=== PATIENT | male | born 1935 | race Caucasian/White ===

== ENCOUNTER → 2017-11-01 | Outpatient (CLI) | payer OTHER | END | disposition home or self-care (01) | LOC: US 14:04 | DX: I65.23 Occlusion and stenosis of bilateral carotid arteries (principal); I10 Essential (primary) hypertension; E78.5 Hyperlipidemia, unspecified | CPT/HCPCS: 93880 ==

== ENCOUNTER → 2017-11-22 | Outpatient (CLI) | payer OTHER ==
[2015-05-02 15:30] VITALS: BP 132/68
[~2017-11-22] MED LIST: ASPI-612 PO; SIMV10TA3 PO; TERA10CA3 PO
--- NOTE | 2017-11-22 14:44 | KCIC ---
EXAM: Brain MRI without contrast. HISTORY: Word finding difficulty. Dizziness. Syncope. TECHNIQUE: Multiplanar, multisequence magnetic resonance imaging of the brain was performed without contrast. COMPARISON: 05/02/2015 FINDINGS: There is no restricted diffusion to suggest acute or subacute infarction. There is a tiny focus of susceptibility effect within the right parietal lobe, likely due to chronic microhemorrhage. There is also susceptibility effect within the bilateral basal ganglia due to mineral deposition. There is no evidence of acute or subacute hemorrhage. There is no mass effect or midline shift. There is no hydrocephalus. There are multiple scattered areas of signal change within the cerebral white matter, a nonspecific finding. The orbits are unremarkable. There is mild paranasal sinus because of thickening. The mastoid air cells are clear. There are normal flow voids within the cerebral vessels. 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 IMPRESSION: 1. No acute intracranial finding. 2. Scattered focal areas of signal change within the cerebral white matter, a nonspecific finding likely due to chronic small vessel disease. Electronically signed by: Julia Whitney MD (11/22/2017 2:41 PM) [facility]
== END | disposition home or self-care (01) ==
LOC: KCIC MRI 12:48
PROVIDERS: ATTEND Family Medicine
DX: R90.82 White matter disease, unspecified (principal); G45.9 Transient cerebral ischemic attack, unspecified; R42 Dizziness and giddiness; I10 Essential (primary) hypertension; E78.5 Hyperlipidemia, unspecified; Z86.12 Personal history of poliomyelitis; E66.9 Obesity, unspecified
CPT/HCPCS: 70551

== ENCOUNTER → 2017-11-27 | Outpatient (CLI) | payer OTHER ==
[2015-05-02 15:30] VITALS: BP 132/68
--- NOTE | 2017-11-27 12:38 | KCIC ---
MRA Brain History:Dizziness for about 6 weeks, weakness of the bilateral legs, visual changes Technique: 3-D [id number] MR angiography was performed of the brain. Comparison: MRI brain exam November 22, 2017 Contrast: None Findings: Determination of any degree of stenosis is based on NASCET criteria. There is some motion degradation. Right vertebral artery supplies basilar artery. Left vertebral artery terminates in PICA. There is visualization segments bilateral PICAs and right AICA, left AICA not seen. There is visualization bilateral superior cerebellar arteries as well as bilateral posterior communicating arteries. 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 No significant right P1 segment is visualized. There is tiny anterior communicating artery. There is visualization of the internal carotid arteries bilaterally at the skull base. There is visualization of segments of the anterior middle cerebral arteries bilaterally as well as more distal posterior cerebral arteries. No significant intracranial stenosis or aneurysm is identified. Impression: 1. No significant intracranial stenosis or aneurysm is identified. There is -type right posterior cerebral artery. Electronically signed by: Tommy Jose MD (11/27/2017 12:35 PM) [facility]
== END | disposition home or self-care (01) ==
LOC: KCIC MRI 11:12
PROVIDERS: ATTEND Family Medicine
DX: R42 Dizziness and giddiness (principal); R53.1 Weakness; E66.9 Obesity, unspecified; I10 Essential (primary) hypertension; E78.5 Hyperlipidemia, unspecified; Z87.442 Personal history of urinary calculi; Z68.26 Body mass index [BMI] 26.0-26.9, adult; Z86.12 Personal history of poliomyelitis
CPT/HCPCS: 70544

== ENCOUNTER → 2017-12-06 | Outpatient (CLI) | payer OTHER ==
[2015-05-02 15:30] VITALS: BP 132/68
--- NOTE | 2017-12-06 09:31 | RAD ---
Left subclavian artery ultrasound, 12/06/2017: HISTORY: Subclavian steal syndrome Duplex evaluation of the left subclavian artery was performed including grayscale, color-flow and spectral Doppler analysis. The left subclavian Doppler waveforms are predominantly biphasic and of good amplitude. There are mild scattered atherosclerotic plaques. No significant focal stenosis is seen. No parvus/tardus phenomena is seen to suggest an occult proximal stenosis at its origin. The left vertebral artery demonstrates antegrade blood flow. IMPRESSION: Mild atherosclerotic plaquing without evidence of significant left subclavian artery stenosis. Electronically signed by: Kun Aquino MD (12/06/2017 9:28 AM) [facility]
== END | disposition home or self-care (01) ==
LOC: US 08:27
PROVIDERS: ATTEND Psychiatry & Neurology Neurology
DX: I70.298 Other atherosclerosis of native arteries of extremities, other extremity (principal); I10 Essential (primary) hypertension; Z87.442 Personal history of urinary calculi; Z86.12 Personal history of poliomyelitis
CPT/HCPCS: 93931

== ENCOUNTER → 2017-12-18 | Outpatient (CLI) | payer OTHER ==
[2015-05-02 15:30] VITALS: BP 132/68
--- NOTE | 2017-12-18 10:43 | CARD ---
MR#: [id number] Date of Study: 12/18/2017 Ordering Physician: ELIO BLANTON, Referring Physician: ELIO BLANTON, Tech: Deepthi Gaxiola RDCS APPROVED REPORT EXAM: Two-dimensional and M-mode echocardiogram with Doppler and color Doppler. Other Information Quality : Good INDICATION Blurred Vision 2D DIMENSIONS RVDd3.1 (2.9-3.5cm)Left Atrium(2D)4.2 (1.6-4.0cm) IVSd1.0 (0.7-1.1cm)Aortic Root(2D)3.1 (2.0-3.7cm) LVDd5.5 (3.9-5.9cm)LVOT Diameter2.0 (1.8-2.4cm) PWd1.0 (0.7-1.1cm)LVDs3.8 (2.5-4.0cm) FS (%) 30.6 %SV84.7 ml LVEF(%)57.5 (>50%) Aortic Valve AoV Peak Adolfo.160.1cm/sAoV VTI29.8cm AO Peak GR.10.3mmHgLVOT Peak Adolfo.128.4cm/s LVOT VTI 27.00cmAO Mean GR.5mmHg CHE (VMAX)2.06ue5WER (VTI)2.92cm2 AI P 1/2 Pxpa381kw Mitral Valve MV E Gmvssdfp22.9cm/sMV DECEL [id number] MV A Njsiimty988.8cm/sMV SCP87by E/A Ratio0.6MVA (PHT)2.62cm2 TDI E/Lateral E'10.5E/Medial E'13.9 Tricuspid Valve TR P. Sksnkcfo353mf/sRAP JAWBSPWW7jdIz TR Peak Gr.01vhLwZVPL37zgXp Pulmonary Vein S1 Fizaervf21.0cm/sD2 Agvdoney71.4cm/s LEFT VENTRICLE The left ventricle is normal size. There is normal left ventricular wall thickness. The left ventricu lar systolic function is normal and the ejection fraction is within normal range. The Ejection Fracti on is 55-60%. There is normal LV segmental wall motion. Transmitral Doppler flow pattern is Grade I-a bnormal relaxation pattern. RIGHT VENTRICLE The right ventricle is normal size. The right ventricular systolic function is normal. ATRIA The left atrium is mildly dilated. The right atrium size is normal. The interatrial septum is intact with no evidence for an atrial septal defect or patent foramen ovale as noted on 2-D or Doppler imagi ng. AORTIC VALVE The aortic valve is calcified but opens well. Doppler and Color Flow revealed trace aortic regurgitat ion. There is no significant aortic valvular stenosis. MITRAL VALVE The mitral valve is calcified but opens well. There is no evidence of mitral valve prolapse. There is no mitral valve stenosis. Doppler and Color-flow revealed trace to mild mitral regurgitation. TRICUSPID VALVE The tricuspid valve is normal in structure and function. Doppler and Color Flow revealed mild tricusp id regurgitation. The PA pressure was estimated at 28 mmHg. There is no tricuspid valve stenosis. PULMONIC VALVE The pulmonary valve is normal in structure and function. Doppler and Color Flow revealed mild pulmoni c valvular regurgitation. There is no pulmonic valvular stenosis. GREAT VESSELS The aortic root is normal in size. The ascending aorta is normal in size. The IVC is normal in size a nd collapses >50% with inspiration. PERICARDIAL EFFUSION There is no evidence of significant pericardial effusion. Critical Notification Critical Value: No <Conclusion> The left ventricular systolic function is normal and the ejection fraction is within normal range. Th e Ejection Fraction is 55-60%. There is normal LV segmental wall motion. Doppler and Color Flow revealed mild tricuspid regurgitation. The PA pressure was estimated at 28 mmH g. Signed by : Ajay Crawford, Electronically Approved : 12/18/2017 10:42:33
== END | disposition home or self-care (01) ==
LOC: ECHO 08:31
PROVIDERS: ATTEND Psychiatry & Neurology Neurology
DX: I36.1 Nonrheumatic tricuspid (valve) insufficiency (principal); I37.1 Nonrheumatic pulmonary valve insufficiency; I10 Essential (primary) hypertension; E78.5 Hyperlipidemia, unspecified; Z87.442 Personal history of urinary calculi; Z86.12 Personal history of poliomyelitis
CPT/HCPCS: 93306

== ENCOUNTER → 2017-12-27 | Outpatient (CLI) | payer OTHER ==
[2015-05-02 15:30] VITALS: BP 132/68
--- NOTE | 2017-12-27 14:20 | RAD ---
Right upper extremity arterial Doppler ultrasound HISTORY: Pain and dizziness. Possible subclavian steal syndrome. TECHNIQUE: Grayscale, color Doppler and duplex analysis. All velocities are in centimeters per second. FINDINGS: Right common carotid artery is partially scanned demonstrating some plaque. Right vertebral artery is patent with normal direction of flow. Right subclavian artery peak systolic velocity is 353 cm/s at its proximal aspect, 245 at its mid aspect, and 87 at its distal aspect. Right axillary artery is 98. Brachial artery peak systolic velocities range from 129 through 215. Radial artery is 73 and ulnar artery is 65. Biphasic arterial waveforms throughout. Left common carotid artery is partially scanned and is patent. Left vertebral artery is patent with normal direction of flow. IMPRESSION: Elevated right subclavian artery velocity, up to 353 cm/s proximally, compatible with stenosis. Right vertebral artery flow is antegrade. Electronically signed by: Adam Calderon MD (12/27/2017 2:17 PM) [facility]
== END | disposition home or self-care (01) ==
LOC: US 10:14
PROVIDERS: ATTEND Psychiatry & Neurology Neurology
DX: G45.8 Other transient cerebral ischemic attacks and related syndromes (principal)
CPT/HCPCS: 93931

== ENCOUNTER → 2018-01-17 | Outpatient (CLI) | payer OTHER ==
[2015-05-02 15:30] VITALS: BP 132/68
[~2018-01-17] MED LIST changes: +CRESTOR10 MG PO; +DICL75TA PO; +ESCITALOPRAM OX10 MG PO; +IOHEXOL 300 MG/ML 100ML VIAL. IV ONE; +UBID1CAP41 PO
--- NOTE | 2018-01-17 13:47 | KCIC ---
CT ANGIOGRAPHY NECK, CT ANGIOGRAPHY HEAD dated 01/17/2018 10:00 AM Indication: Subclavian steal syndrome dizziness when raising right arm for 3 to 4 months prior history of TIA.. Comparison: No comparison is available. Technique: Contiguous axial imaging of the head and neck performed following the intravenous administration of 100 cc Omnipaque 300. Precontrast imaging of the head was also acquired. Study performed as dedicated CTA with thin cut coronal and sagittal MIPS reconstructions and 3-D rotational reconstruction. One or more of the following individualized dose reduction techniques were utilized for this examination: 1. Automated exposure control 2. Adjustment of the mA and/or kV according to patient size 3. Use of iterative reconstruction technique. Carotid Stenosis calculations for CT, MR, and conventional angiography are based upon measurements of the distal ICA diameter in accordance with the NASCET methodology. Stenosis calculations for carotid ultrasound studies are derived from validated velocity criteria which are known to correlate with the NASCET methodology. Findings: Study is limited due to motion artifact and beam hardening artifact from dense contrast material in the left brachiocephalic vein. Aortic arch is within normal limits in caliber. There is bovine origin of the left common carotid artery. Bilateral subclavian arteries are patent. No apparent stenosis. The vertebral artery origins are not well evaluated due to artifact. The left vertebral artery is hypoplastic compared to the right side. The distal vessels are patent to the level the skull base. No apparent stenosis or intimal flap. The intradural vertebral arteries are patent proximally. The left vertebral appears to and in PICA. Basilar artery is patent. There is origin of the right [employer] and near origin of the left [employer]. No posterior circulation stenosis or aneurysm. Comment carotid origins are patent. There is mild scattered calcific plaque. There is also mild calcific plaque at the bilateral carotid bifurcation and proximal internal carotid arteries. There is estimated at 10-20% narrowing of the proximal right ICA. Minimal narrowing of the proximal left ICA. The internal carotid arteries are otherwise patent to the skull base. Mild calcific plaque at the cavernous internal carotid arteries bilaterally. There is also mild involvement of the supraclinoid ICA on the right. No significant stenosis or aneurysm. The bilateral MARISOL and MCA branches are symmetric. No apparent branch vessel occlusion or aneurysm. Postcontrast imaging of the brain shows no abnormal enhancement. The dural venous sinuses are patent. Precontrast imaging shows no hemorrhage or extra-axial collection. There is mild patchy low density in the deep/subcortical periventricular white matter. Mild mucosal thickening of the bilateral ethmoid air cells. The mastoid air cells are clear. No significant soft tissue abnormality. Images of the lung bases show mild to moderate emphysema. Nonspecific patchy groundglass opacity bilaterally. IMPRESSION: 1. No evidence of hemodynamically significant stenosis or aneurysm. 2. Proximal subclavian arteries and bilateral vertebral artery origins are not well evaluated due to motion artifact and beam hardening artifact. There is no apparent stenosis. The left vertebral artery is hypoplastic and appears to end in PICA. 3. Mild chronic small vessel ischemic changes and atrophy. 4. No acute hemorrhage or mass. Electronically signed by: Adam Espinoza MD (01/17/2018 1:44 PM) [facility]
== END | disposition home or self-care (01) ==
LOC: KCIC CT 09:33
PROVIDERS: ATTEND Family Medicine
DX: G45.8 Other transient cerebral ischemic attacks and related syndromes (principal)
CPT/HCPCS: 70496; 70498; 82565; Q9967

== ENCOUNTER → 2019-04-22 | Outpatient (CLI) | payer MEDICARE ==
[2015-05-02 15:30] VITALS: BP 132/68
[~2019-04-22] MED LIST changes: -IOHEXOL 300 MG/ML 100ML VIAL. IV ONE; +SIMV10TA15 PO; -SIMV10TA3 PO
--- NOTE | 2019-04-22 13:52 | KCIC ---
Examination: 3 views the right knee and 2 views of the bilateral hips with pelvis HISTORY: History of fall, pain COMPARISON: None available. FINDINGS: The bilateral femoral heads are within the acetabula. Moderate joint space loss identified in the bilateral hips likely degenerative changes. Moderate joint space loss identified in the medial, lateral, patellofemoral compartments. Chondrocalcinosis identified. IMPRESSION: 1. 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 2. Chondrocalcinosis right knee joint. Electronically signed by: Aroldo Dolan MD (04/22/2019 1:49 PM) [place] [id number]
== END | disposition home or self-care (01) ==
LOC: KCIC 11:31
PROVIDERS: ATTEND Family Medicine
DX: M16.0 Bilateral primary osteoarthritis of hip (principal); M17.11 Unilateral primary osteoarthritis, right knee; M11.261 Other chondrocalcinosis, right knee
CPT/HCPCS: 73521; 73562

== ENCOUNTER → 2019-09-24 | Outpatient (CLI) | payer MEDICARE ==
[2015-05-02 15:30] VITALS: BP 132/68
--- NOTE | 2019-09-24 13:55 | RAD ---
Exam : Carotid Duplex with Grayscale Ultrasound and Spectral and Color Doppler Analysis 09/24/2019 1:51 PM Clinical Indications: Reason: DIZZINESS / Spl. Instructions: / History: Comparison study: Carotid Doppler evaluation of the carotid arteries November 01, 2017. PQRS Compliance Statement - Stenosis calculations for CT, MR and conventional angiography are based upon measurement of the distal ICA diameter in accordance with the NASCET methodology. Stenosis calculations for carotid ultrasound studies are derived from validated velocity criteria which are known to correlate with the NASCET methodology. Findings: The common, internal and external carotid arteries were examined by grayscale, color and spectral Doppler ultrasound. There is diffuse atherosclerotic vascular disease with calcification and wall thickening most prominently involving the carotid bulbs. No high-grade visual stenosis is identified on color Doppler imaging. The following are the velocities and ratios in the carotid arteries on both sides: RIGHT ICA PV: 98cm/sec RIGHT CCA PV: 121cm/sec RIGHT ICA ED: 16cm/sec RIGHT IC/CCPV: Less than 2 RIGHT VERTEBRAL: antegrade flow LEFT ICA PV: 94cm/sec LEFT CCA PV: 130cm/sec LEFT ICA ED: 20cm/sec LEFT IC/CCPV: Less than 2 LEFT VERTEBRAL: antegrade flow <50% ICA Stenosis: PSV < 125cm/s (EDV < 40cm/s; SVR < 2.0) 50-69% ICA Stenosis: PSV < 125-229cm/s (EDV 40-99cm/s; SVR 2.0-3.9) >70% ICA Stenosis: PSV > 230cm/s (EDV >100cm/s; SVR >4.0) Impression: Calcified and noncalcified and sclerotic vascular disease, most prominently involving the carotid bulbs with less than 50% stenosis of the bilateral internal carotid arteries by ultrasound criterion Electronically signed by: Israel Gutierrez MD (09/24/2019 1:52 PM) [id number]
== END | disposition home or self-care (01) ==
LOC: US 12:26
PROVIDERS: ATTEND Family Medicine
DX: I70.8 Atherosclerosis of other arteries (principal); R42 Dizziness and giddiness
CPT/HCPCS: 93880

== ENCOUNTER → 2019-10-22 | Outpatient (CLI) | payer MEDICARE ==
[2015-05-02 15:30] VITALS: BP 132/68
[~2019-10-22] MED LIST changes: -ASPI-612 PO; +ASPI-886 PO; +CONTRAST GIVEN. MC PRN; +IOHEXOL 350 MG/ML 100 ML VIAL. IV ONE
--- NOTE | 2019-10-22 10:10 | RAD ---
Exam: CT ANGIOGRAPHY NECK Date: 10/22/2019 10:00 AM Indication: bilateral carotid stnosis Comparison: Carotid ultrasound 09/24/2019. CTA 01/17/2018 Technique: CT angiogram of neck was obtained with bolus injection of 75 mL of Omnipaque 350. The images were sent to workstation and multiplanar reconstructions were obtained. Multiplanar reconstruction images to include MIP and 3-D reconstruction images are submitted. One or more of the following dose reduction techniques were utilized: Automated exposure control (AEC), Adjustment of mA and/or kV according to patient size, Use of iterative reconstruction technique such as ASiR, CT scan done according to ALARA and image gently/image wisely Findings: Right carotid: The right common carotid artery is patent and normal caliber. Atherosclerosis of the carotid bifurcation. No stenosis of the right internal carotid artery per NASCET criteria. The right external carotid artery is patent. Left carotid: The left common carotid artery is patent and normal caliber. Atherosclerosis of the carotid bifurcation. No stenosis of the left internal carotid artery per NASCET criteria. The left external carotid artery is patent. Right vertebral: The right vertebral artery is patent and normal caliber. Left vertebral: The left vertebral artery is patent. Cervical left vertebral artery is mildly hypoplastic throughout. Intracranially, vertebral artery is markedly hypoplastic after the takeoff of PICA. Mild atherosclerosis of the aortic arch. The origins of the brachiocephalic and subclavian arteries are normal. No cervical lymphadenopathy. The thyroid gland is normal. The parotid and submandibular glands are normal. The visualized aerodigestive tract is unremarkable. Mild to moderate multilevel degenerative disc height loss. Multilevel disc protrusions and marginal osteophytes results in multilevel spinal canal stenosis. Multilevel uncovertebral and facet arthrosis with multilevel neural foraminal narrowing. Paraseptal and centrilobular emphysema. Impression: Atherosclerosis of the internal carotid arteries with no stenosis. PQRS Compliance Statement - Stenosis calculations for CT, MR and conventional angiography are based upon measurement of the distal ICA diameter in accordance with the NASCET methodology. Electronically signed by: Tommy Emerson MD (10/22/2019 10:07 AM) [id number]
== END | disposition home or self-care (01) ==
LOC: CT 11:25
PROVIDERS: ATTEND Surgery Vascular Surgery
DX: R42 Dizziness and giddiness (principal); I65.23 Occlusion and stenosis of bilateral carotid arteries
CPT/HCPCS: 70498; Q9967

== ENCOUNTER 2020-07-09 18:33 | Emergency (ER) | payer MEDICARE ==
[~2020-07-09] VITALS: Ht 157.5 cm; Wt 78.0 kg
[~2020-07-09 18:33] MED LIST changes: -CONTRAST GIVEN. MC PRN; -IOHEXOL 350 MG/ML 100 ML VIAL. IV ONE
--- NOTE | 2020-07-09 20:26 | PHYS DOC ---
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 facial laceration at zygomatic arch, and left nasal laceration at bridge fol lowing fall in garden onto grass. Pt claims he lost balance and fell and denies LOC or presyncope. Daughter drove pt to hospital. Pt claims that he landed directly on left hip and was helped up by neighbor and fell again on face in the process of being helped. Pt complains of minor pain in face. Pt claims right knee pain in constant dull 5/10 at the joint and does not radiate. Pt clims his left hip feels "just sore." Pt current takes daily aspiring. Pt denies fever, chills, nausea, vomiting. Daughter stated that last tetanus shot was 7 years ago. Review of Systems: Review of Systems: Constitutional: Denies fever or chills Eyes: Denies redness or eye pain HENT: Denies nasal congestion or sore throat Respiratory: Denies cough or shortness of breath Cardiovascular: Denies chest pain or palpitations GI: Denies abdominal pain, nausea, or vomiting : Denies dysuria or hematuria Musculoskeletal: Complains of soreness on left hip, complains of pain in right knee, complains of minor pain on left side of face. Integument: laceration on left side of face, no bruising or ecchymosis on left hip, swelling in right knee Neurologic: Denies headache, focal weakness or sensory changes Complete systems were reviewed and found to be within normal limits, except as documented in this note. Heart Score: C/O Chest Pain: N/A Family History: Family History: No relevant family history Current Medications: Daily aspirin Current Medications Medications (Trade) Dose Ordered Sig/Benjamin Start Time Stop Time Status Last Admin Dose Admin Acetaminophen (Tylenol) 500 mg 1X ONCE 07/09/20 20:15 07/09/20 20:16 DC Neomycin/ Polymyxin/ Bacitracin (Triple Antibiotic Ointment) 1 pkt 1X ONCE 07/09/20 20:15 4/9/21 20:16 DC Allergies: Allergies: Allergies Coded Allergies Type Severity Reaction Last Updated Verified No Known Drug Allergies 08/15/13 No Physical Exam: PE: Constitutional: Well developed, well nourished, no acute distress, non-toxic appearance HENT: Laceration on left side of face-nasal and zygomatic area, no tenderness to palpation on nose, minus tenderness to palpation on zygomatic laceration. Eyes: conjunctiva normal, no discharge Neck: Normal range of motion, no tenderness, supple Lungs & Thorax: No respiratory distress, equal chest rise and fall Abdomen: Soft, no tenderness Skin: Laceration on left side of face, no ecchymosis or bruising on left hip Back: No tenderness, no CVA tenderness Extremities: Swelling in the medial aspect left knee, limited range of motion in left knee and right knee due to pain Neurologic: Alert and oriented X 3, normal motor function, normal sensory function, no focal deficits noted Psychologic: Affect normal, judgment normal Current Patient Data: Vital Signs: Vital Signs Date Time Temp Pulse Resp B/P (MAP) Pulse Ox O2 Delivery O2 Flow Rate FiO2 07/09/20 18:45 98.9 66 16 174/78 (110) 95 Room Air 98.9 EKG: EKG: [] Radiology/Procedures: Radiology/Procedures: PROCEDURE: CT MAXILLOFACIAL WO CONTRAST Exam: CT head, maxillofacial and cervical spine INDICATION: Pain, status post fall TECHNIQUE: Sequential axial images through the head, face and cervical spine were obtained without the administration of IV contrast. Comparisons: None FINDINGS: Head: No focal parenchymal lesion or hemorrhage is identified. There is no midline shift or sulcal effacement. Patchy hypodensity in the periventricular white matter. No acute vascular territory infarction is identified. Pereira-white distinction is preserved. The ventricular system is within normal limits without compression hydrocephalus. The basal cisterns are well maintained. Face: The visualized portions of the paranasal sinuses and mastoid air cells are well- pneumatized. No acute fractures. Globes and intraorbital contents are normal. Cervical spine: Straightening of cervical spine which may be positional. Grade 1 anterolisthesis of C3 on C4. Fracture to the cervical spine is not identified. Multilevel spondylotic change in cervical spine with degenerative disease greatest at C5-C6 and C6-C7. Mild bilateral facet arthropathy is also noted. Visualized paraspinal soft tissues are unremarkable. IMPRESSION: 1. No acute intracranial abnormality. 2. No acute traumatic injury identified at the face. 3. Negative CT C-spine for acute traumatic injury. Exposure: One or more of the following in the visualized dose reduction techniques were utilized for this examination: 1. Automated exposure control 2. Adjustment of the MA and/or KV according to patient size Use of iterative of reconstructive technique Electronically signed by: Mike Price MD (07/09/2020 8:47 PM) [facility] PROCED[facility]: KNEE BILAT 3V Exam: Left and right knee 3 views INDICATION: Pain status post fall TECHNIQUE: Frontal, lateral and oblique views of the right and left knee Comparisons: None FINDINGS: Left knee: Left knee arthroplasty changes are noted. Mild osteopenia. No acute or healed fractures. Soft tissues are unremarkable. Right knee: Bone mineralization is normal. Mild osteopenia. No acute or healed fractures. Small suprapatellar effusion. IMPRESSION: 1. Small suprapatellar fusion over the right knee. 2. No acute osseous abnormality of the left knee. Electronically signed by: Mike Price MD (07/09/2020 9:18 PM) [facility] PROCEDURE: CT HEAD AND CERVICAL SPINE WO Exam: CT head, maxillofacial and cervical spine INDICATION: Pain, status post fall TECHNIQUE: Sequential axial images through the head, face and cervical spine were obtained without the administration of IV contrast. Comparisons: None FINDINGS: Head: No focal parenchymal lesion or hemorrhage is identified. There is no midline shift or sulcal effacement. Patchy hypodensity in the periventricular white matter. No acute vascular territory infarction is identified. Pereira-white distinction is preserved. The ventricular system is within normal limits without compression hydrocephalus. The basal cisterns are well maintained. Face: The visualized portions of the paranasal sinuses and mastoid air cells are well- pneumatized. No acute fractures. Globes and intraorbital contents are normal. Cervical spine: Straightening of cervical spine which may be positional. Grade 1 anterolisthesis of C3 on C4. Fracture to the cervical spine is not identified. Multilevel spondylotic change in cervical spine with degenerative disease greatest at C5-C6 and C6-C7. Mild bilateral facet arthropathy is also noted. Visualized paraspinal soft tissues are unremarkable. IMPRESSION: 1. No acute intracranial abnormality. 2. No acute traumatic injury identified at the face. 3. Negative CT C-spine for acute traumatic injury. Exposure: One or more of the following in the visualized dose reduction techniques were utilized for this examination: 1. Automated exposure control 2. Adjustment of the MA and/or KV according to patient size Use of iterative of reconstructive technique Course & Med Decision Making: Course & Med Decision Making 85-year-old presented to the emergency department for a fall in the garden landing on left hip and hitting left side of face. Patient has lacerations on left side of face and minor swelling in the right knee. Patient complains of soreness in left hip, no bruising no tenderness to palpation. Patient's pain was managed and imaging of head and knees was performed. No acute findings. Patient's wounds were bandaged. Dragon Disclaimer: Dragon Disclaimer: This electronic medical record was generated, in whole or in part, using a voice recognition dictation system. Departure Departure Impression: Primary Impression: Fall Qualified Codes: W19.XXXA - Unspecified fall, initial encounter Additional Impressions: Facial abrasion Qualified Codes: S00.81XA - Abrasion of other part of head, initial encounter Knee pain Qualified Codes: M25.561 - Pain in right knee; M25.562 - Pain in left knee Disposition: 01 DC HOME SELF CARE/HOMELESS Condition: STABLE Referrals: ACACIA NELSON MD (PCP) Patient Instructions: Abrasion, [id number], Contusion, [id number], Fall Prevention and Home Safety, [id number], Knee Pain, [id number], Knee Wraps (Elastic Bandage) and RICE Additional Instructions: Take over the counter Tylenol and/or Ibuprofen for pain or discomfort as needed. DESTINY MEJIA DO Jul 09, 2020 20:26
[2020-07-09] MEDS: NEOMY/BACITR/POLYMYXIN OINT PACKET. TP ONE (20:35)
[2020-07-09] MEDS: ACETAMINOPHEN 500 MG TABLET PO ONE (20:35)
--- NOTE | 2020-07-09 20:49 | RAD ---
Exam: CT head, maxillofacial and cervical spine INDICATION: Pain, status post fall TECHNIQUE: Sequential axial images through the head, face and cervical spine were obtained without th e administration of IV contrast. Comparisons: None FINDINGS: Head: No focal parenchymal lesion or hemorrhage is identified. There is no midline shift or sulcal effaceme nt. Patchy hypodensity in the periventricular white matter. No acute vascular territory infarction is carlos deuardo ntified. Pereira-white distinction is preserved. The ventricular system is within normal limits without compression hydrocephalus. The basal cisterns are well maintained. Face: The visualized portions of the paranasal sinuses and mastoid air cells are well-pneumatized. No acute fractures. Globes and intraorbital contents are normal. Cervical spine: Straightening of cervical spine which may be positional. Grade 1 anterolisthesis of C3 on C4. Fracture to the cervical spine is not identified. Multilevel spondylotic change in cervical spine with degenerative disease greatest at C5-C6 and C6-C7 . Mild bilateral facet arthropathy is also noted. Visualized paraspinal soft tissues are unremarkable. IMPRESSION: 1. No acute intracranial abnormality. 2. No acute traumatic injury identified at the face. 3. Negative CT C-spine for acute traumatic injury. Exposure: One or more of the following in the visualized dose reduction techniques were utilized for this examination: 1. Automated exposure control 2. Adjustment of the MA and/or KV according to patient size Use of iterative of reconstructive technique Electronically signed by: Mike Price MD (07/09/2020 8:47 PM) [facility]
--- NOTE | 2020-07-09 20:49 | RAD ---
Exam: CT head, maxillofacial and cervical spine INDICATION: Pain, status post fall TECHNIQUE: Sequential axial images through the head, face and cervical spine were obtained without th e administration of IV contrast. Comparisons: None FINDINGS: Head: No focal parenchymal lesion or hemorrhage is identified. There is no midline shift or sulcal effaceme nt. Patchy hypodensity in the periventricular white matter. No acute vascular territory infarction is carlos eduardo ntified. Pereira-white distinction is preserved. The ventricular system is within normal limits without compression hydrocephalus. The basal cisterns are well maintained. Face: The visualized portions of the paranasal sinuses and mastoid air cells are well-pneumatized. No acute fractures. Globes and intraorbital contents are normal. Cervical spine: Straightening of cervical spine which may be positional. Grade 1 anterolisthesis of C3 on C4. Fracture to the cervical spine is not identified. Multilevel spondylotic change in cervical spine with degenerative disease greatest at C5-C6 and C6-C7 . Mild bilateral facet arthropathy is also noted. Visualized paraspinal soft tissues are unremarkable. IMPRESSION: 1. No acute intracranial abnormality. 2. No acute traumatic injury identified at the face. 3. Negative CT C-spine for acute traumatic injury. Exposure: One or more of the following in the visualized dose reduction techniques were utilized for this examination: 1. Automated exposure control 2. Adjustment of the MA and/or KV according to patient size Use of iterative of reconstructive technique Electronically signed by: Mike Price MD (07/09/2020 8:47 PM) [facility]
--- NOTE | 2020-07-09 21:20 | RAD ---
Exam: Left and right knee 3 views INDICATION: Pain status post fall TECHNIQUE: Frontal, lateral and oblique views of the right and left knee Comparisons: None FINDINGS: Left knee: Left knee arthroplasty changes are noted. Mild osteopenia. No acute or healed fractures. Soft tissues are unremarkable. Right knee: Bone mineralization is normal. Mild osteopenia. No acute or healed fractures. Small suprapatellar eff usion. IMPRESSION: 1. Small suprapatellar fusion over the right knee. 2. No acute osseous abnormality of the left knee. Electronically signed by: Mike Price MD (07/09/2020 9:18 PM) [facility]
[2020-07-09 22:31] VITALS: BP 187/88
== END 2020-07-09 22:55 | disposition home or self-care (01) ==
LOC: ER 18:33
DX: S00.81XA Abrasion of other part of head, initial encounter (principal); M25.561 Pain in right knee; M25.562 Pain in left knee; R51.9 Headache, unspecified; Z87.442 Personal history of urinary calculi; Z90.89 Acquired absence of other organs; Z98.890 Other specified postprocedural states; W18.39XA Other fall on same level, initial encounter; Y93.89 Activity, other specified; Y92.89 Other specified places as the place of occurrence of the external cause; Y99.8 Other external cause status
CPT/HCPCS: 70450; 70486; 72125; 99285; 73562-50